=== PATIENT | female | born 1945 | race Caucasian/White ===

== ENCOUNTER 2022-01-19 01:31 | Inpatient (IN) | payer MEDICARE ==
[~2022-01-19] VITALS: Ht 160 cm; Wt 74.6 kg
[~2022-01-19 01:31] MED LIST: CO Q10 PO; DULOXETINE HCL30 MG PO; FISH OIL 1,2001 EACH PO; GABAPENTIN100 MG PO; LISINOPRIL10 MG PO; MONTELUKAST SOD10 MG PO; OSTEO BI-FLEX1 EAC1 PO; TRAMADOL HCL50 MG PO; VIT D3 PO; ZETIA 10 MG TAB10 MG PO
[2022-01-19 02:32] LABS: HEMOGLOBIN 13.7 gm/dl (12.3-15.3); RED BLOOD COUNT 4.54 M/UL (4.00-5.10); WHITE BLOOD COUNT 11.3 K/UL (4.5-11.0)
[2022-01-19] MEDS ORDERED: EVISTA 60 MG TA60 MG PO (02:50)
[2022-01-19] MEDS ORDERED: BENZONATATE200 MG PO (02:51)
[2022-01-19] MEDS ORDERED: CETIRIZINE HCL10 MG PO (10:33)
[2022-01-19] MEDS ORDERED: VITAMIN D325 MCG PO (10:33)
[2022-01-19] MEDS ORDERED: OMEGA-31000 MG PO (10:34)
[2022-01-19] MEDS ORDERED: OSTEO BI-FLEX1 EACH PO (10:34)
[2022-01-19] MEDS ORDERED: COQ-10100 MG PO (10:34)
[2022-01-19] MEDS ORDERED: ARICEPT10 MG PO (15:16)
[2022-01-20 02:05] LABS: HEMOGLOBIN 13.3 gm/dl (12.3-15.3); RED BLOOD COUNT 4.43 M/UL (4.00-5.10); WHITE BLOOD COUNT 11.4 K/UL (4.5-11.0)
[2022-01-21] MEDS ORDERED: CEFUROXIME500 MG PO (11:15)
[2022-01-21] MEDS ORDERED: XARELTO20 MG PO (11:15)
[2022-01-21] MEDS ORDERED: LASIX20 MG PO (11:15)
[2022-01-21] MEDS ORDERED: TOPROL XL50 MG PO (11:15)
[2022-01-21] MEDS ORDERED: LISINOPRIL5 MG PO (11:15)
[2022-01-21] MEDS ORDERED: K-TAB ER10 MEQ PO (11:17)
== END 2022-01-21 12:10 | disposition home or self-care (01) | DRG 286 ==
LOC: PROG CARE 01:32
PROVIDERS: Internal Medicine; ADMIT Internal Medicine
PROC: 4A023N7 Measurement of Cardiac Sampling and Pressure, Left Heart, Percutaneous Approach (ICD-10-PCS; principal; 2022-01-19)
PROC: B2111ZZ Fluoroscopy of Multiple Coronary Arteries using Low Osmolar Contrast (ICD-10-PCS; 2022-01-19)
PROC: B24BZZZ Ultrasonography of Heart with Aorta (ICD-10-PCS; 2022-01-19)
DX: I11.0 Hypertensive heart disease with heart failure (principal); I50.23 Acute on chronic systolic (congestive) heart failure; J18.9 Pneumonia, unspecified organism; I44.7 Left bundle-branch block, unspecified; Z20.822 Contact with and (suspected) exposure to COVID-19; M81.0 Age-related osteoporosis without current pathological fracture; M79.7 Fibromyalgia; E78.5 Hyperlipidemia, unspecified; I48.0 Paroxysmal atrial fibrillation; Z90.710 Acquired absence of both cervix and uterus; Z82.49 Family history of ischemic heart disease and other diseases of the circulatory system; Z79.82 Long term (current) use of aspirin; Z86.16 Personal history of COVID-19; Z95.810 Presence of automatic (implantable) cardiac defibrillator; Z79.899 Other long term (current) drug therapy
CPT/HCPCS: ECHO; 36415; 71045; 80048; 80053; 80061; 82550; 82553; 83735; 83880; 84100; 84439; 84443; 84484; 85025; 85027; 85379; 85610; 85730; 86140; 87040; 93005; 93306; 94760; C1769; J0456; J0696; J1644; J1940; J2250; J3010; J7030; J7040; Q9965